=== PATIENT | female | born 1955 | race Caucasian/White ===

== ENCOUNTER 2022-04-13 04:00 | Inpatient (IN) | payer BC, MEDICARE, SELFPAY ==
[2022-04-13] VITALS (7 sets, daily range): BP systolic 112–160; BP diastolic 57–79; PULSE 67–89; RESP 16; TEMP 36.1–37.3; O2SAT 94–97
[2022-04-13] MEDS: OXYCODONE 5 MG TABLET PO ×6 (03:53→23:55)
--- NOTE | 2022-04-13 05:49 | PC.NURSE ---
Pt arrived from ED approx 2029, frequent small watery stools which have decreased in frequency as night progressed, Pt C-Diff Positive. c/o occasional low abd pain/cramps, prn oxy administered with relief. ambulating ind in room, tolerating clears, advance diet as tolerated. denies N/V during night.
--- NOTE | 2022-04-13 06:33 | PM.IMPN1 ---
Progress Note: A&P Assessment and plan (1) Colitis due to Clostridioides difficile: Status: Acute Assessment and Plan: on oral vancomycin, 125 mg p.o. q.i.d. LR at 100 mL an hour, will continue until oral intake is appropriate. Oxy p.r.n. CT at admission: circumferential wall thickening around the sigmoid colon. Appearance is most consistent with colitis, favor infectious. No free air. No abscess. Nonobstructive left nephrolithiasis. (2) CKD (chronic kidney disease) stage 3, GFR 30-59 ml/min: Problem details: GFR has been 43-51 in recent years. Baseline creatinine is 1.1 as of 2021. Likely related to longstanding hypertension. Status: Acute Assessment and Plan: Creatinine earlier this week on April 09 was 5.5 and then 4.3 after hydration. She was not admitted at this ER visit. admission creat was 1.0 , this morning it is 0.9 (3) Hypertension: Problem details: losartan 100 mg daily, potassium supplementation Status: Acute Assessment and Plan: Holding her losartan. Time Spent With Patient Total time spent: 35 minutes Subjective Interval history: Daily Progress Note - Hospital Medicine Day #: 2 CC: Crampy diarrhea , positive C diff OVERNIGHT UPDATES FROM STAFF & MED, LAB, IMAGING UPDATES Patient feels fairly punky this morning. While the diarrhea has slowed down she still has abdominal bloating and cramping. No significant fevers or chills. No vomiting. No appetite. Nurse notes: Pt arrived from ED approx 2029, frequent small watery stools which have decreased in frequency as night progressed, Pt C-Diff Positive. c/o occasional low abd pain/cramps, prn oxy administered with relief. ambulating ind in room, tolerating clears, advance diet as tolerated. denies N/V during night. Admission data: hemoglobin 10.4 Mild leukocytosis at 12.2 CRP at admission was 16.2 Iron deficient Creatinine 1.3 Electrolytes normal Today's white blood cell count 9.92, yesterday 12.44 Hemoglobin has drifted to 9.3, 10.4 on admission . CRP is to up to 18.7 Creatinine looks great at 0.9, normal electrolytes Last dose of Oxy was at 4:00 a.m. Home meds reviewed Review of Systems: See subjective Cardiac: No new chest pain/pressure/palpitations. Respiratory: no new dyspnea. GI: Objective: Vitals: see above Lungs: Clear. Cardiac: S1S2. Disposition/Potential discharge - Likely to return to previous living situation. Total time is 35 minutes with greater than 50% spent in counseling and coordination of care. Exam Const: Vital Signs, click to edit/add: Vital Signs - 24 hr 04/13/22 03:30 04/13/22 05:46 Temperature 97.0 F L Pulse Rate [Right Pulse Oximeter] 67 Respiratory Rate 16 Blood Pressure [Ri ght Arm] 112/64 Pulse Oximetry 95 95
[2022-04-13 06:48] LABS: Slide Review Reflex No
[2022-04-13 06:55] LABS: Basophils Absolute Auto 0.02 K/uL (0.00-0.30); Basophils Percent Auto 0.2 % (0.0-3.0); Eosinophils Absolute Auto 0.13 K/uL (0.00-0.50); Eosinophils Percent Auto 1.3 % (0.0-7.0); Hematocrit 28.8 % (33.0-51.0); Hemoglobin* 9.3 gm/dL (12.0-16.0); Immature Granulocytes Abs Auto 0.44 K/uL (0.00-0.30); Lymphocytes Percent Auto 10.4 % (20-44); Mean Corpuscular HGB Conc 32 gm/dL (32-36); Mean Corpuscular Hemoglobin 30 pg (26-34); Mean Corpuscular Volume 93 fL (80-100); Monocytes Percent Auto 11.3 % (0.0-11.0); Neutrophils Percent Auto 72.4 % (42.0-72.0); Platelet Count* 303 K/uL (140-440); RDW Coefficient of Variation % 16.7 % (11.5-15.5); Red Blood Count 3.11 m/uL (4.00-5.20); White Blood Count* 9.92 K/uL (4.50-11.00)
[2022-04-13 07:08] LABS: Chloride* 111 mmol/L (96-114); Potassium* 4.2 mmol/L (3.6-5.1); Sodium* 138 mmol/L (135-149)
[2022-04-13 07:10] LABS: Creatinine* 0.9 mg/dL (0.5-1.5); Est. Creatinine Clearance* 44.36; Estimated Glomerular Filt Rate 70.95
[2022-04-13 07:11] LABS: Blood Urea Nitrogen* 25 mg/dL (7-30); Carbon Dioxide* 25 mmol/L (20-32); Glucose* 132 mg/dL (60-115)
[2022-04-13 07:31] LABS: C Reactive Protein* 18.7 mg/dL (0.5-1.0)
[2022-04-13] MEDS: 5 % DEXTROSE IN LAC RINGER'S 1,000 ML 100 ML IV ×2 (07:45→17:29)
[2022-04-13] MEDS: VANCOMYCIN 125 MG CAPSULE PO ×4 (09:19→22:02)
--- NOTE | 2022-04-13 13:51 | PC.NURSE ---
PATIENT'S VSS AND AFEBRILE. LS CLEAR. BS ACTIVE AND PATIENT PASSING GAS. PATIENT CONTINUES TO HAVE MULTIPLE LOOSE STOOLS BUT DENIES N/V. TOLERATING SMALL AMOUNTS OF CLEAR LIQUIDS. PATIENT REPORTS INCREASED CRAMPING ABDOMINAL PAIN WHICH IS IMPROVED WITH OXYCODONE AND REST.
[2022-04-13 17:20] LABS: Magnesium* 2.1 mg/dL (1.5-2.6)
--- NOTE | 2022-04-13 23:05 | PC.NURSE ---
Patient is up to the bathroom frequently to have small, loose stools. Pt describes them as bloody mucous. Receiving oxycodone every 4 hours PRN for abdominal cramping that worsens with bowel movements. Pt denies dizziness or lightheadedness. Continues with a clear liquid diet as tolerated.
[2022-04-14] VITALS (7 sets, daily range): BP systolic 113–159; BP diastolic 56–81; PULSE 78–97; RESP 16–20; TEMP 35.9–37.1; O2SAT 92–96
[2022-04-14] MEDS: 5 % DEXTROSE IN LAC RINGER'S 1,000 ML 100 ML IV ×3 (02:41→22:39)
[2022-04-14] MEDS: OXYCODONE 5 MG TABLET PO (04:02)
--- NOTE | 2022-04-14 05:24 | PC.NURSE ---
Addendum entered by Tyrone Sanchez RN 04/14/22 06:43: Advanced to Full Liquid diet Original Note: VSS RA. Crampy abd pain 02/23 gave Oxycodone 5mg q4h. Tolerated a piece of toast. Up ad mikhail in room ind w/cares.
[2022-04-14 07:33] LABS: Slide Review Reflex No
[2022-04-14 07:35] LABS: HCO3 VBG 26 mmol/L (21-28); PCO2 VBG 43 mmHG (40-50); PO2 VBG 59.4 mmHG (25-47); pH VBG 7.401 (7.32-7.43)
[2022-04-14 07:43] LABS: Basophils Absolute Auto 0.02 K/uL (0.00-0.30); Basophils Percent Auto 0.2 % (0.0-3.0); Eosinophils Absolute Auto 0.13 K/uL (0.00-0.50); Eosinophils Percent Auto 1.4 % (0.0-7.0); Hematocrit 26.5 % (33.0-51.0); Hemoglobin* 8.3 gm/dL (12.0-16.0); Immature Granulocytes Abs Auto 0.24 K/uL (0.00-0.30); Lymphocytes Percent Auto 13.7 % (20-44); Mean Corpuscular HGB Conc 31 gm/dL (32-36); Mean Corpuscular Hemoglobin 29 pg (26-34); Mean Corpuscular Volume 93 fL (80-100); Monocytes Percent Auto 11.3 % (0.0-11.0); Neutrophils Absolute Auto 6.38 K/uL (1.7-7.0); Neutrophils Percent Auto 70.7 % (42.0-72.0); Platelet Count* 302 K/uL (140-440); RDW Coefficient of Variation % 16.7 % (11.5-15.5); Red Blood Count 2.85 m/uL (4.00-5.20); White Blood Count* 9.03 K/uL (4.50-11.00)
[2022-04-14 07:53] LABS: Chloride* 110 mmol/L (96-114)
[2022-04-14 07:54] LABS: Albumin* 2.4 g/dL (3.3-5.0); Sodium* 138 mmol/L (135-149)
[2022-04-14 07:55] LABS: Potassium* 3.5 mmol/L (3.6-5.1)
[2022-04-14 07:57] LABS: Alanine Aminotransferase* 18 U/L (4-35); Alkaline Phosphatase* 51 U/L (40-150); Aspartate Amino Transferase* 16 U/L (12-35); Bilirubin Total* 0.3 mg/dL (0.1-1.5); Blood Urea Nitrogen* 14 mg/dL (7-30); Carbon Dioxide* 26 mmol/L (20-32); Creatinine* 0.7 mg/dL (0.5-1.5); Est. Creatinine Clearance* 44.36; Estimated Glomerular Filt Rate 95.92; Total Protein* 4.7 g/dL (6.0-8.3)
[2022-04-14 07:58] LABS: Calcium* 7.7 mg/dL (8.4-10.6); Glucose* 122 mg/dL (60-115); Magnesium* 1.8 mg/dL (1.5-2.6)
[2022-04-14 08:14] LABS: C Reactive Protein* 15.6 mg/dL (0.5-1.0)
[2022-04-14] MEDS: VANCOMYCIN 125 MG CAPSULE PO ×4 (09:19→20:55)
--- NOTE | 2022-04-14 15:11 | PM.IMPN1 ---
Progress Note: A&P Assessment and plan (1) Colitis due to Clostridioides difficile: Status: Acute Assessment and Plan: Continue oral vancomycin, IV fluids. Tracking her hemoglobin. Likely needs to be admitted for another 24 hours. (2) Hypertension: Problem details: losartan 100 mg daily, potassium supplementation Status: Acute Assessment and Plan: Holding her losartan currently. Will add back some potassium as it is dropping. (3) CKD (chronic kidney disease) stage 3, GFR 30-59 ml/min: Problem details: GFR has been 43-51 in recent years. Baseline creatinine is 1.1 as of 2021. Likely related to longstanding hypertension. Status: Acute Assessment and Plan: Creatinine is the best it has been in recent measurements. (4) ABLA (acute blood loss anemia): Status: Acute Plan Combination of delusional effect and GI blood loss Subjective Interval history: Daily Progress Note - Hospital Medicine Day #: 3 CC: Crampy diarrhea , positive C diff OVERNIGHT UPDATES FROM STAFF & MED, LAB, IMAGING UPDATES Patient feels a little better this morning. She tolerated some toast yesterday afternoon. She has been up ambulating in her room and back and forth to the bathroom independently. No vomiting or extreme nausea overnight. Afebrile Blood pressure 150/78, 148/79 Pulse rate 90s Respiratory rate 20 Pulse ox 95% on room air Weight 71 kilos, up from 68 kg Hemoglobin has dropped another point to 8.3 from 9.3 yesterday. White count is normal and stable at 9000 Venous blood gas this morning is normal Potassium has dropped a little to 3.5 from 4.2 otherwise normal electrolytes and renal function. CRP is down to 15 Patient continues on LR with 5% dextrose, oral vanc and p.r.n. oxycodone. Review of Systems: See subjective Cardiac: No new chest pain/pressure/palpitations. Respiratory: no new dyspnea. GI: Objective: Awake. Alert. Interactive. Vitals: see above Lungs: Clear. Cardiac: S1S2. Abdomen: Distended, tender but no evidence of rigidity or surgical emergency. Good bowel sounds. Disposition/Potential discharge - Likely to return to previous living situation. Total time is 35 minutes with greater than 50% spent in counseling and coordination of care. Exam Const: Vital Signs, click to edit/add: Vital Signs - 24 hr 04/13/22 15:45 04/13/22 16:10 04/13/22 20:12 Temperature 98.7 F 98.8 F Pulse Rate [Right Pulse Oximeter] 86 86 89 Pulse Rate [Right Radial] Respiratory Rate 16 16 16 Blood Pressure [Ri ght Arm] 138/66 160/79 H Pulse Oximetry 95 95 04/14/22 00:29 04/14/22 04:06 04/14/22 08:00 Temperature 98.1 F 96.6 F L 96.8 F L Pulse Rate [Right Pulse Oximeter] 84 82 78 Pulse Rate [Right Radial] 78 Respiratory Rate 16 16 16 Blood Pressure [Ri ght Arm] 126/65 113/56 L 148/79 H Pulse Oximetry 93 95 95 04/14/22 12:00 Temperature 96.8 F L Pulse Rate [Right Pulse Oximeter] 97 Pulse Rate [Right Radial] Respiratory Rate 20 Blood Pressure [Ri ght Arm] 150/78 H Pulse Oximetry Labs Labs: Laboratory Results - last 24 hr 04/13/22 04/14/22 04/14/22 06:36 06:48 06:48 WBC 9.03 RBC 2.85 L Hgb 8.3 L Hct 26.5 L MCV 93 MCH 29 MCHC 31 L RDW Coeff of Ruma 16.7 H Plt Count 302 Neut % (Auto) 70.7 Lymph % (Auto) 13.7 L [place] % (Auto) 11.3 H Eos % (Auto) 1.4 Baso % (Auto) 0.2 Neut # (Auto) 6.38 Lymph # (Auto) 1.20 [place] # (Auto) 1.00 H Eos # (Auto) 0.13 Baso # (Auto) 0.02 Abs Immat Gran (auto) 0.24 VBG pH VBG pCO2 VBG pO2 VBG HCO3 Sodium 138 Potassium 3.5 L Chloride 110 Carbon Dioxide 26 BUN 14 Creatinine 0.7 Estimated Creat Clear 44.36 Glucose 122 H Calcium 7.7 L Magnesium 2.1 1.8 Total Bilirubin 0.3 AST 16 ALT 18 Alkaline Phosphatase 51 C-Reactive Protein 15.6 H Total Protein 4.7 L Albumin 2.4 L 04/14/22 06:48 WBC RBC Hgb Hct MCV MCH MCHC RDW Coeff of Ruma Plt Count Neut % (Auto) Lymph % (Auto) [place] % (Auto) Eos % (Auto) Baso % (Auto) Neut # (Auto) Lymph # (Auto) [place] # (Auto) Eos # (Auto) Baso # (Auto) Abs Immat Gran (auto) VBG pH 7.401 VBG pCO2 43 VBG pO2 59.4 H VBG HCO3 26 Sodium Potassium Chloride Carbon Dioxide BUN Creatinine Estimated Creat Clear Glucose Calcium Magnesium Total Bilirubin AST ALT Alkaline Phosphatase C-Reactive Protein Total Protein Albumin
--- NOTE | 2022-04-14 15:28 | PC.NURSE ---
shift note: pt up indept in room. pt tolerating full liquid diet. Pt having increased abd distention with cramping when introducing a few bites of toast. IV dc'd intact Lt wrist and restarted in Lt FA
--- NOTE | 2022-04-14 18:50 | PC.NURSE ---
Shift Note 15-19: Pt friendly and cooperative. Denies any BM, states she did have some flatus. Oral Vanco given. Pt also verbalizes increased discomfort with regular diet, opted to stick with full liquid diet at this time and declined ordering dinner tray. Denies pain and abdomen is soft on palpation. BS hypoactive. Slightly hypertensive, VS otherwise WNL. LS COA. Afebrile.
[2022-04-14] MEDS: POTASSIUM PHOS/SODIUM PHOS 250 MG TABLET PO (20:55)
[2022-04-15 04:24] VITALS: BP 138/70; RESP 18; TEMP 36.8; O2SAT 96
--- NOTE | 2022-04-15 05:46 | PC.NURSE ---
Shift note: The pt has been pleasant and cooperative. She has been having several small loose BM mixed with small blood per Pt. She has been reporting very minimal pain. She stated that when she eats any kinds of food and drink water her abdominal pain seems to increase- So she is reducing oral intake ( bowel rest ). No fever noted. She denied chest pain and other distress throughout the night.
[2022-04-15 07:38] LABS: Basophils Absolute Auto 0.01 K/uL (0.00-0.30); Basophils Percent Auto 0.1 % (0.0-3.0); Eosinophils Absolute Auto 0.08 K/uL (0.00-0.50); Hematocrit 29.3 % (33.0-51.0); Hemoglobin* 9.5 gm/dL (12.0-16.0); Immature Granulocytes Abs Auto 0.16 K/uL (0.00-0.30); Lymphocytes Percent Auto 14.3 % (20-44); Mean Corpuscular HGB Conc 32 gm/dL (32-36); Mean Corpuscular Hemoglobin 30 pg (26-34); Mean Corpuscular Volume 92 fL (80-100); Monocytes Percent Auto 8.6 % (0.0-11.0); Platelet Count* 368 K/uL (140-440); RDW Coefficient of Variation % 16.5 % (11.5-15.5); Red Blood Count 3.18 m/uL (4.00-5.20); White Blood Count* 8.17 K/uL (4.50-11.00)
[2022-04-15 07:39] LABS: Slide Review Reflex No
[2022-04-15 07:49] LABS: Chloride* 107 mmol/L (96-114); Potassium* 3.8 mmol/L (3.6-5.1); Sodium* 140 mmol/L (135-149)
[2022-04-15 07:52] LABS: Creatinine* 0.7 mg/dL (0.5-1.5); Est. Creatinine Clearance* 44.36; Estimated Glomerular Filt Rate 95.92
[2022-04-15 07:53] LABS: Blood Urea Nitrogen* 9 mg/dL (7-30); Calcium* 8.1 mg/dL (8.4-10.6); Carbon Dioxide* 29 mmol/L (20-32); Glucose* 119 mg/dL (60-115); Magnesium* 1.8 mg/dL (1.5-2.6)
[2022-04-15 08:00] VITALS: BP 160/83; PULSE 84; RESP 18; TEMP 37; O2SAT 97
[2022-04-15 08:20] LABS: C Reactive Protein* 13.6 mg/dL (0.5-1.0)
[2022-04-15] MEDS: POTASSIUM PHOS/SODIUM PHOS 250 MG TABLET PO ×2 (08:46→22:02)
[2022-04-15] MEDS: VANCOMYCIN 125 MG CAPSULE PO ×4 (08:46→22:02)
[2022-04-15 12:00] VITALS: BP 122/70; PULSE 91; RESP 18; TEMP 36.8; O2SAT 96
--- NOTE | 2022-04-15 16:04 | PC.NURSE ---
shift note: vss stable. pt up in horner x2. pt states bloating to abd is less today. Pt has hypoactive BS in upper quads. Pt states she had 3 small loose stools with moderate amounts of flatus. Pt tolerating small amounts of liquids throughout the day
[2022-04-15 16:05] VITALS: BP 161/83; PULSE 84; PULSE 86; RESP 18; TEMP 36.6; O2SAT 97
[2022-04-15 21:00] VITALS: BP 148/61; PULSE 101; RESP 18; TEMP 36.2; O2SAT 96
--- NOTE | 2022-04-15 23:31 | PC.NURSE ---
Shift Note [id number]: Pt moving independently. One small loose bloody stool. Slightly hypertensive, VS otherwise WNL. Tolerating full liquids well.
[2022-04-16 01:41] VITALS: BP 141/61; PULSE 86; RESP 18; TEMP 36.4; O2SAT 95
[2022-04-16 01:45] VITALS: PULSE 86; RESP 18
[2022-04-16 05:50] VITALS: BP 145/74; PULSE 79; RESP 18; TEMP 36.3; O2SAT 95
--- NOTE | 2022-04-16 07:23 | PC.NURSE ---
Shift note: The pt has been denying abdominal pain throughout the night. She stated that she had tomato soup for dinner and tolerated it well. She said she had x2 small loose stool mixed with some blood. The pt had been resting comfortale throughout the night.
[2022-04-16 07:24] LABS: HCO3 VBG 28 mmol/L (21-28); Lactate* 0.4 mmol/L (0.5-1.9); PCO2 VBG 41 mmHG (40-50); PO2 VBG 51.9 mmHG (25-47); pH VBG 7.432 (7.32-7.43)
[2022-04-16 07:27] LABS: Hematocrit 27.2 % (33.0-51.0); Hemoglobin* 8.7 gm/dL (12.0-16.0); Mean Corpuscular HGB Conc 32 gm/dL (32-36); Mean Corpuscular Hemoglobin 29 pg (26-34); Mean Corpuscular Volume 91 fL (80-100); Platelet Count* 357 K/uL (140-440); White Blood Count* 6.35 K/uL (4.50-11.00)
[2022-04-16 07:44] LABS: Slide Review Reflex No
[2022-04-16 08:16] LABS: Magnesium* 1.9 mg/dL (1.5-2.6)
[2022-04-16 09:00] VITALS: BP 145/69; PULSE 85; RESP 18; TEMP 36.7; O2SAT 96
[2022-04-16 09:00] LABS: Procalcitonin* 1.07 ng/mL (<0.50)
[2022-04-16] MEDS: VANCOMYCIN 125 MG CAPSULE PO ×2 (09:14→13:11)
[2022-04-16] MEDS: POTASSIUM PHOS/SODIUM PHOS 250 MG TABLET PO (09:15)
[2022-04-16 09:17] LABS: C Reactive Protein* 6.9 mg/dL (0.5-1.0); NT Pro B Type NatriureticPept* 435 PG/mL (0-125)
--- NOTE | 2022-04-16 15:00 | NUTR.NU ---
RDN with MD consult related to colitis. Patient and agreed to receive diet education related to colitis. Patient reports having a 'sluggish' bowel pattern, describing having bowel movements every 3-4 days without consistency. She also reports she typically strains when she is having a bowel movement. Patient was provided diet education on a low fiber diet with a transition to high-fiber diet. Discussed foods to include and foods to avoid until MD recommends advancing to high fiber diet. Education also provided on gradually increasing fiber and following a high fiber diet (25-35 grams/day) long-term.? Verbal and written information as well as sample menus provided on both diets from AND [facility].? Patient verbalized understanding.? RDN's contact information was provided and patient was encouraged to contact RDN with questions.
--- NOTE | 2022-04-16 16:21 | PM.IMPN1 ---
Progress Note: A&P Assessment and plan (1) Colitis due to Clostridioides difficile: Status: Acute Assessment and Plan: Suspect she needs another 24 hours to measure fluid intake and pain management. I suspect she will be able to discharge tomorrow. (2) Hypertension: Problem details: losartan 100 mg daily, potassium supplementation Status: Acute Assessment and Plan: Stable. (3) CKD (chronic kidney disease) stage 3, GFR 30-59 ml/min: Problem details: GFR has been 43-51 in recent years. Baseline creatinine is 1.1 as of 2021. Likely related to longstanding hypertension. Status: Acute Assessment and Plan: Stable. (4) ABLA (acute blood loss anemia): Status: Acute Assessment and Plan: There continues to be a small amount of GI blood loss from her inflammation secondary to the colitis. This can be monitored at this point. Subjective Interval history: Daily Progress Note - Hospital Medicine Day #: 4 CC: Crampy diarrhea , positive C diff OVERNIGHT UPDATES FROM STAFF & MED, LAB, IMAGING UPDATES Patient feels a little better this morning. She tolerated some toast yesterday afternoon. She has been up ambulating in her room and back and forth to the bathroom independently. No vomiting or extreme nausea overnight. Reviewed vitals and labs. I have stopped fluids this morning Patient continues on oral vanc Review of Systems: See subjective Cardiac: No new chest pain/pressure/palpitations. Respiratory: no new dyspnea. GI: Mild to moderate distension Objective: Awake. Alert. Interactive. Vitals: see above Lungs: Clear. Cardiac: S1S2. Abdomen: Distended, tender but no evidence of rigidity or surgical emergency. Good bowel sounds. Disposition/Potential discharge - Likely to return to previous living situation. Total time is 35 minutes with greater than 50% spent in counseling and coordination of care. Exam Const: Vital Signs, click to edit/add: Vital Signs - 24 hr 04/15/22 21:00 04/16/22 01:41 04/16/22 01:45 Temperature 97.1 F L 97.6 F Pulse Rate [Right Radial] 101 H 86 86 Respiratory Rate 18 18 18 Blood Pressure [Ri ght Arm] 148/61 H 141/61 H Pulse Oximetry 96 95 04/16/22 05:50 04/16/22 09:00 Temperature 97.4 F L 98.1 F Pulse Rate [Right Radial] 79 85 Respiratory Rate 18 18 Blood [facility]] 145/74 H 145/69 H Pulse Oximetry 95 96 Labs Labs: Laboratory Results - last 24 hr 04/16/22 04/16/22 04/16/22 07:05 07:05 07:05 WBC 6.35 RBC 3.00 L Hgb 8.7 L Hct 27.2 L MCV 91 MCH 29 MCHC 32 Plt Count 357 VBG pH 7.432 H VBG pCO2 41 VBG pO2 51.9 H VBG HCO3 28 Lactate 0.4 L Magnesium 1.9 C-Reactive Protein 6.9 H NT-Pro-B Natriuret Pep 435 H Procalcitonin 1.07 H
--- NOTE | 2022-04-16 16:37 | PC.NURSE ---
shift note: vss stable. pt afeb. pt instructed prior to dc by urologic nurse. Reviewed dc instructions and copies sent with pt at dc. Belongings reviewed and sent with pt at dc. IV dc'd intact Lt FA.
--- NOTE | 2022-04-16 20:43 | P.DS_ITS ---
DS: Providers Provider Date of admission: 04/15/22 14:17 Primary care physician: Licha Sol DO Admitting Clinician: Suzanne Alvarez MD Consults: 04/16/22 14:14 Consult to Nutrition [CONS] Routine Comment: Reason for consult:: Miscellaneous Comment: information on colitis diet Attending Physician on discharge: Suzanne Alvarez MD DS: Diagnosis Discharge Diagnosis (1) Colitis due to Clostridioides difficile: Status: Acute Problem details: Status post oral vancomycin, total 14 days. First occurrence. (2) ABLA (acute blood loss anemia): Status: Acute Problem details: PCP should follow-up on hemoglobin. I think this will be self-limited. She was not transfused. (3) CKD (chronic kidney disease) stage 3, GFR 30-59 ml/min: Status: Acute Problem details: GFR has been 43-51 in recent years. Baseline creatinine is 1.1 as of 2021. Likely related to longstanding hypertension. (4) Hypertension: Status: Acute Problem details: losartan 100 mg daily, potassium supplementation DS: Summary Hospital Course Hospital Course: HOSPITALIST DISCHARGE SUMMARY ATTENDING PHYSICIAN: Suzanne Alvarez MD FINAL DIAGNOSIS: C difficile colitis HOSPITAL FOLLOWUP ISSUES: 1. Primary care -continue oral vancomycin as prescribed. REFERRALS WHILE ADMITTED: None REFERRALS AFTER DISCHARGE: None BRIEF HOSPITAL COURSE: Patient had severe presentation of dehydration, JULIANNA, diarrhea. A previous ER visit earlier in the week showed a severe JULIANNA. While that was as bad as her kidneys would look throughout this entire presentation, her dehydration and weakness and diarrhea continued to get worse. She ultimately was diagnosed to C difficile colitis. She responded to p.o. vancomycin. We weaned her off her fluids. She was tolerating a regular diet, albeit soft and small, however no vomiting white increased diarrhea. She had some GI blood loss with her colitis. This was observed. She did not receive a transfusion. VITAL SIGN, MEDICATION, LAB/MICRO, IMAGING SUMMARY (full details available in account tabs or by records request) CBC reflected her anemia. On discharge it was 8.7. She was 9.3 on admission. CRP down trending Pro count was elevated, I suspect this is just related to her known bacterial infection of her: Blood gas was reassuring CT AP on admission: 1. Similar appearance of circumferential wall thickening concerning inflammatory changes around the sigmoid colon and distal portion of the left colon. Appearance is consistent with colitis, favored of infectious etiology. No free air or organized fluid collection. 2. Nonobstructive left nephrolithiasis DISCHARGE MEDICATIONS: See Reconciled list REVIEW OF SYSTEMS No new chest pain or dyspnea Pain controlled No voiding difficulties Tolerating diet challenge PHYSICAL EXAM: CONSTITUTIONAL: VITAL SIGNS: see record. HEENT: Normocephalic, atraumatic. PERRL, EOMI, conjunctivae pink, no scleral icterus. Ears and nose externally normal. Pharynx normal. NECK: No JVD. No carotid bruit, no thyromegaly, no adenopathy. CHEST: Clear to auscultation bilaterally. HEART: S1 and S2 normal. Edema ABDOMEN: Much improved, still mildly tender. Still mild distention but reji erating the exam much better MUSCULOSKELETAL: No gross joint deformity or swelling. NEURO: Cranial nerves intact. Grossly intact. No asymmetric findings. SKIN: No rashes, petechiae, concerning changes PSYCHIATRIC: Mood euthymic. DISPOSITION: Time spent on discharge 37 minutes. Status at Discharge Functional status at discharge: independent ambulation Time Spent with Patient Time attestation: Total time spent providing and/or coordinating discharge services: Time spent: Greater than 30 minutes Exam Const: Vital Signs, click to edit/add: Vital Signs - 24 hr 04/15/22 21:00 04/16/22 01:41 04/16/22 01:45 Temperature 97.1 F L 97.6 F Pulse Rate [Right Radial] 101 H 86 86 Respiratory Rate 18 18 18 Blood Pressure [Ri ght Arm] 148/61 H 141/61 H Pulse Oximetry 96 95 04/16/22 05:50 04/16/22 09:00 Temperature 97.4 F L 98.1 F Pulse Rate [Right Radial] 79 85 Respiratory Rate 18 18 Blood Pressure [Ri ght Arm] 145/74 H 145/69 H Pulse Oximetry 95 96 DS: Data Data Completed and Pending Labs on day of discharge: Labs from last 24 hours 04/16/22 04/16/22 04/16/22 07:05 07:05 07:05 WBC 6.35 RBC 3.00 L Hgb 8.7 L Hct 27.2 L MCV 91 MCH 29 MCHC 32 Plt Count 357 VBG pH 7.432 H VBG pCO2 41 VBG pO2 51.9 H VBG HCO3 28 Lactate 0.4 L Magnesium 1.9 C-Reactive Protein 6.9 H NT-Pro-B Natriuret Pep 435 H Procalcitonin 1.07 H Discharge Plan Discharge Disposition: Home, Self-Care Date of Admission: 04/15/22 14:17 Attending Provider on Discharge: Suzanne Alvarez Primary Care Provider: Licha Sol Condition: Improved Anticipated Discharge Date/Time: 04/16/22 14:48 Discharge Medications: New vancomycin 125 mg Capsule 125 mg PO QID Qty: 40 0RF Phospha 250 Neutral 250 mg Tablet 250 mg PO BID Qty: 30 0RF oxycodone 5 mg Tablet 5 mg PO Q4H PRNQty: 10 0RF Continued losartan 100 mg tablet 100 mg PO DAILY 0RF potassium citrate 10 mEq (1,080 mg) tablet extended release 2,160 mg PO DAILY 0RF cholecalciferol (vitamin D3) 25 mcg (1,000 unit) capsule 25 mcg PO DAILY 0RF cetirizine 10 mg tablet 10 mg PO DAILY 0RF Discharge Orders: Discharge Order (Routine); Ordered 04/16/22 Ordered By: Suzanne Alvarez Patient Education: Oxycodone, Rapid Release (By mouth), Vancomycin (By mouth), C. Diff (Clostridioides Difficile) Infection (DC) Activity Level: Activity as Tolerated Discharge Diet: Regular Follow Up Appointments: Licha Sol DO [Primary Care Provider] - 04/28/22 12:45 pm Forms: [facility] Info Instructions
--- NOTE | 2022-04-23 10:50 | PC.NURSE ---
Late entry note-patient inpatient order to start on 04/13/22. New electronic charting system implemented, order missed on admission to floor on 04/13/22 at approximately 0400.
== END 2022-04-16 16:00 | disposition home or self-care (01) | DRG 248 ==
PROVIDERS: Admitting Provider Family Medicine; Emergency Provider Internal Medicine; PCP Family Medicine; Visit Provider Family Medicine
DX: A04.72 Enterocolitis due to Clostridium difficile, not specified as recurrent (principal); D62 Acute posthemorrhagic anemia; N17.9 Acute kidney failure, unspecified; I12.9 Hypertensive chronic kidney disease with stage 1 through stage 4 chronic kidney disease, or unspecified chronic kidney disease; N18.30 Chronic kidney disease, stage 3 unspecified; E86.0 Dehydration; N20.0 Calculus of kidney
CPT/HCPCS: 36415; 80048; 80053; 82803; 83605; 83735; 83880; 84145; 85025; 85027; 86140; A9270; G0378

== ENCOUNTER 2024-03-03 21:15 | Emergency (ER) | payer MEDICARE, BC, SELFPAY ==
[2024-03-03 21:36] VITALS: BP 193/112; PULSE 97; RESP 18; TEMP 36.9; O2SAT 98; BMI 25.7
--- NOTE | 2024-03-03 22:05 | CT_ITS ---
Patient: RADHA SHOOK Facility:?[facility] Patient ID:?[id number] Site Patient ID:?[id number]. Site :?[id number] Study:?CT-Abdomen/Pelvis W/74CC [id number] 11:06:36 PM Ordering Physician:VEDA Final Report: INDICATION: Abdominal pain. TECHNIQUE: CT abdomen and pelvis acquired with 74 cc Isovue 370 IV contrast. COMPARISON: None. FINDINGS: Lower chest: Unremarkable. Liver: Mild hepatic steatosis. No suspicious masses. Gallbladder and bile ducts: Unremarkable. No stones or inflammation. No biliary ductal dilatation. Spleen: Unremarkable. Normal in size. No masses. Adrenal glands: Unremarkable. No nodules. Pancreas: Unremarkable. No mass or inflammation. Kidneys: Bilateral renal cysts. Subcentimeter hypodense foci are too small to accurately characterize. Small nonobstructive left renal calculi. No hydronephrosis. GI tract: Small hiatal hernia. Large colonic stool load. Mild wall thickening at the rectosigmoid junction. No evidence of obstruction. Appendix is not well visualized, however there is no evidence of right lower quadrant inflammatory stranding. Lymph nodes: No lymphadenopathy. Vasculature: Scattered atherosclerotic calcifications. Abdominal aorta is normal in caliber. Omentum/Peritoneum/Abdominal Wall: Trace free fluid in the pelvis. No focal fluid collection. No free air. 3.5 cm low-density lesion in the left rectus femoris muscle. Pelvis: Unremarkable. Bones: Unremarkable for age. IMPRESSION: 1. Mild wall thickening at the rectosigmoid junction, nonspecific may represent component of proctocolitis. 2. Large colonic stool load, likely reflecting constipation. 3. 3.5 cm low-density lesion in the left rectus femoris muscle, nonspecific. 4. Small left nonobstructive nephrolithiasis. Please note that all CT scans at this facility use dose modulation, iterative reconstruction, and/or weight-based dosing when appropriate to reduce radiation dose to as low as reasonably achievable. Dictated by Garry Buckely MD @ 03/03/2024 11:34:44 PM Signed by:?Garry Buckley MD @03/03/2024 11:34:44 PM (Electronic Signature)
--- NOTE | 2024-03-03 22:34 | ED_ITS ---
HPI - Abdominal Pain General Chief Complaint: Abdominal Pain Stated Complaint: abodminal pain Time Seen by Provider: 03/03/24 22:02 History of Present Illness HPI narrative: Patient is a 69-year-old woman who comes in tonight with 6-8 hours of abdominal pain. Abdominal pain is diffuse. He was accompanied by loose stools. She has had no fevers no chills no night sweats. She has had no nausea or vomiting. Patient has a distant history 2 years ago of C difficile colitis. She states that she has had no recent antibiotics. No recent travel no sick contacts. No other related symptoms. Related Data Home Medications Medication Instructions Recorded Confirmed cetirizine 10 mg tablet 10 mg PO DAILY 04/13/22 03/03/24 cholecalciferol (vitamin D3) 25 25 mcg PO DAILY 04/13/22 03/03/24 mcg (1,000 unit) capsule losartan 100 mg tablet 100 mg PO DAILY 04/13/22 03/03/24 potassium citrate 10 mEq (1,080 2,160 mg PO DAILY 04/13/22 03/03/24 mg) tablet,extended release levothyroxine 75 mcg tablet 75 mcg PO QAM 03/03/24 03/03/24 rosuvastatin 10 mg tablet 10 mg PO QPM 03/03/24 03/03/24 Previous Rx's Medication Instructions Recorded oxycodone 5 mg tablet 5 mg PO Q4H PRN #10 tabs 04/16/22 sodium di- and 250 mg PO BID #30 tabs 04/16/22 monophosphate-potassium phos monobasic 250 mg tablet (Phospha Neutral) Allergies Allergy/AdvReac Type Severity Reaction Status Date / Time No Known Allergies Allergy Verified 03/03/24 21:39 Review of Systems Status of ROS Reports: 10 or more systems reviewed and unremarkable except as noted in History and below [facility] Medical History CKD (chronic kidney disease) stage 3, GFR 30-59 ml/min ?N18.30 - Chronic kidney disease, stage 3 unspecified (ICD-10) Adenomatous colon polyp ?D12.6 - Benign neoplasm of colon, unspecified (ICD-10) Osteopenia ?M85.80 - Other specified disorders of bone density and structure, unspecified site (ICD-10) 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 - Malignant neoplasm of tonsil, unspecified (ICD-10) Vitamin D deficiency ?E55.9 - Vitamin D deficiency, unspecified (ICD-10) Nephrolithiasis ?N20.0 - Calculus of kidney (ICD-10) Colitis due to Clostridioides difficile ?A04.72 - Enterocolitis due to Clostridium difficile, not specified as recurrent (ICD-10) Hypertension ?I10 - Essential (primary) hypertension (ICD-10) Surgical History History of tonsillectomy ?Z90.89 - Acquired absence of other organs (ICD-10) History of lithotripsy ?Z98.890 - Other specified postprocedural states (ICD-10) Family History Father Lung cancer Diabetes Mother Dementia Brother Nephrolithiasis Brother Gout Social History (Updated 04/13/22 @ 06:27 by Suzanne Alvarez MD) Narrative: , lives with her in [place] Previous occupational history: retired from [employer] Smoking Status: Never smoker How often do you have a drink containing alcohol: 2-4 times a month AUDIT-C Alcohol total score: 2 Exam Narrative: Exam Narrative: EXAM GENERAL: Patient appears comfortable and well. EYES: No scleral icterus. LYMPH: No supraclavicular or cervical lymphadenopathy. SKIN: Visible skin seen during exam normal or with benign process only. EXT: No dependent lower extremity pedal edema. HEART: Regular rate and rhythm with no murmurs, rubs, or gallops. LUNGS: Clear to auscultation bilaterally with no crackles or wheezes. ABD: Soft, non tender, non distended. PSYCH: Good eye contact, speech is not pressured. Const: Vital Signs, click to edit/add: Vital Signs - 24 hr 03/03/24 21:36 Temperature 98.4 F Pulse Rate [Pulse Oximeter] 97 Respiratory Rate 18 Blood Pressure [Ri ght Upper Arm] 193/112 H Pulse Oximetry 98 Oxygen Delivery Me thod Room Air Course Course ED Course: Patient seen examined. CBC CMP amylase UA CT abdomen pelvis pending. Vital Signs Vital signs: Initial Vital Signs Temperature 98.4 F 03/03/24 21:36 Temperature Source Temporal Artery Scan 03/03/24 21:36 Pulse Rate 97 03/03/24 21:36 Pulse Rhythm Regular 03/03/24 21:36 Pulse Strength 3+ Normal 03/03/24 21:36 Respiratory Rate 18 03/03/24 21:36 Blood Pressure 193/112 H 03/03/24 21:36 Blood Pressure Mean 139 H 03/03/24 21:36 Blood Pressure Position Semi-Fowlers 03/03/24 21:36 Pulse Oximetry 98 03/03/24 21:36 Oxygen Delivery Method Room Air 03/03/24 21:36 Vital Signs Temperature 98.4 F 03/03/24 21:36 Pulse Rate 97 03/03/24 21:36 Respiratory Rate 18 03/03/24 21:36 Blood Pressure 193/112 H 03/03/24 21:36 Pulse Oximetry 98 03/03/24 21:36 Oxygen Delivery Method Room Air 03/03/24 21:36 Temperature 98.4 F 03/03/24 21:36 Pulse Rate 97 03/03/24 21:36 Respiratory Rate 18 03/03/24 21:36 Blood Pressure 193/112 H 03/03/24 21:36 Pulse Oximetry 98 03/03/24 21:36 Oxygen Delivery Method Room Air 03/03/24 21:36 MDM - Abdominal Pain MDM Narrative Medical decision making narrative: Labs are reassuring. CT scan shows questionable proctocolitis which likely is self-limited. Large amounts colonic stool load reflecting constipation is likely the etiology for her symptoms. This time I did recommend MiraLax stool softener plenty of rest plenty of fluids and outpatient follow-up. I think the likelihood that this is C difficile colitis is low but we did attempt to check a sample. No other significant findings. Differential diagnosis includes but not limited to gastroenteritis colitis constipation diverticulitis urinary tract infection. Lab Data Labs: Lab Results 03/03/24 03/03/24 03/03/24 Range/Units 22:11 22:16 22:20 WBC 13.58 H (4.50-11.00) K/uL RBC 4.67 (4.00-5.20) m/uL Hgb 14.7 (12.0-16.0) gm/dL Hct 43.5 (33.0-51.0) % MCV 93 (80-100) fL MCH 32 (26-34) pg MCHC 34 (32-36) gm/dL RDW Coeff of Ruma 12.8 (11.5-15.5) % Plt Count 302 (140-440) K/uL Neut % (Auto) 87.9 H (42.0-72.0) % Lymph % (Auto) 6.6 L (20-44) % [place] % (Auto) 5.2 (0.0-11.0) % Eos % (Auto) 0.1 (0.0-7.0) % Baso % (Auto) 0.1 (0.0-3.0) % Neut # (Auto) 11.90 H (1.7-7.0) K/uL Lymph # (Auto) 0.90 (0.90-2.90) K/uL [place] # (Auto) 0.70 (0.00-0.90) K/UL Eos # (Auto) 0.00 (0.00-0.50) K/uL Baso # (Auto) 0.00 (0.00-0.30) K/uL Abs Immat Gran (auto) 0.00 (0.00-0.30) K/uL Imm/Tot Granulo (auto) 0.1 % Sodium 138 (135-149) mmol/L Potassium 3.7 (3.6-5.1) mmol/L Chloride 105 (96-114) mmol/L Carbon Dioxide 25 (20-32) mmol/L Anion Gap 8 (7-15) mEq/L BUN 23 (7-30) mg/dL Creatinine 0.9 (0.5-1.5) mg/dL Estimated Creat Clear 45.16 Estimated GFR 70 ml/min Glucose 128 H (60-115) mg/dL Calcium 10.2 (8.4-10.6) mg/dL Total Bilirubin 0.7 (0.1-1.5) mg/dL AST 34 (12-35) U/L ALT 29 (4-35) U/L Alkaline Phosphatase 86 (40-150) U/L Total Protein 8.2 (6.0-8.3) g/dL Albumin 4.8 (3.3-5.0) g/dL Amylase 102 H (18-89) U/L Urine Color Yellow (Yellow) Urine Appearance Clear (Clear) Urine pH 7.0 (5.0-8.5) Ur Specific [place] 1.020 (1.000-1.030) Urine Protein Negative (Negative) Urine Glucose (UA) Negative (Negative) Urine Ketones 1+ A (Negative) Urine Blood Trace-intact A (Negative) Urine Nitrite Negative (Negative) Urine Bilirubin Negative (Negative) Urine Urobilinogen 0.2 (0.2-1.0) Ur Leukocyte Esterase Negative (Negative) Urine RBC 0-2 (0-2) Urine WBC 0-2 (0-5) Ur Squamous Epith Cells Few (None-Few) Amorphous Sediment Few A (None) Urine Bacteria None (None) POC Creatinine 1.0 (0.6-1.3) mg/dl Discharge Plan Discharge Clinical Impression: Abdominal pain Patient Disposition: Home, Self-Care Condition: Stable Instructions: Abdominal Pain (ED) Additional Instructions: MiraLax 17 g daily Plenty of rest Plenty of fluids Follow-up with your doctor as needed. Activity Level: No Restrictions Discharge Diet: Regular Prescriptions: No Action losartan 100 mg tablet 100 mg PO DAILY potassium citrate 10 mEq (1,080 mg) tablet extended release 2,160 mg PO DAILY cholecalciferol (vitamin D3) 25 mcg (1,000 unit) capsule 25 mcg PO DAILY cetirizine 10 mg tablet 10 mg PO DAILY Phospha 250 Neutral 250 mg Tablet 250 mg PO BID Qty: 30 0RF oxycodone 5 mg Tablet 5 mg PO Q4H PRNQty: 10 0RF levothyroxine 75 mcg tablet 75 mcg PO QAM rosuvastatin 10 mg tablet 10 mg PO QPM Follow Up/Referrals: Licha Sol DO [Primary Care Provider] - Stand Alone Forms: [facility] Info Instructions
[2024-03-03 22:39] LABS: Basophils Percent Auto 0.1 % (0.0-3.0); Eosinophils Percent Auto 0.1 % (0.0-7.0); Hematocrit 43.5 % (33.0-51.0); Hemoglobin* 14.7 gm/dL (12.0-16.0); Immature Granulocytes Pct Auto 0.1 %; Lymphocytes Percent Auto 6.6 % (20-44); Mean Corpuscular HGB Conc 34 gm/dL (32-36); Mean Corpuscular Hemoglobin 32 pg (26-34); Mean Corpuscular Volume 93 fL (80-100); Monocytes Percent Auto 5.2 % (0.0-11.0); Neutrophils Percent Auto 87.9 % (42.0-72.0); Platelet Count* 302 K/uL (140-440); RDW Coefficient of Variation % 12.8 % (11.5-15.5); Red Blood Count 4.67 m/uL (4.00-5.20); White Blood Count* 13.58 K/uL (4.50-11.00)
[2024-03-03 22:49] LABS: Slide Review Reflex No
[2024-03-03 22:57] LABS: Albumin* 4.8 g/dL (3.3-5.0); Chloride* 105 mmol/L (96-114); Sodium* 138 mmol/L (135-149)
[2024-03-03 22:58] LABS: Potassium* 3.7 mmol/L (3.6-5.1)
[2024-03-03 23:00] LABS: Appearance Urine Clear (Clear); Bilirubin Urine Negative (Negative); Blood Urine Trace-intact (Negative); Color Urine Yellow (Yellow); Glucose Urine Negative (Negative); Ketones Urine 1+ (Negative); Leukocyte Esterase Urine Negative (Negative); Nitrite Urine Negative (Negative); Protein Urine Negative (Negative); Urobilinogen Urine 0.2 (0.2-1.0)
[2024-03-03 23:00] LABS: Alanine Aminotransferase* 29 U/L (4-35); Alkaline Phosphatase* 86 U/L (40-150); Amylase* 102 U/L (18-89); Anion Gap 8 mEq/L (7-15); Aspartate Amino Transferase* 34 U/L (12-35); Bilirubin Total* 0.7 mg/dL (0.1-1.5); Blood Urea Nitrogen* 23 mg/dL (7-30); Calcium* 10.2 mg/dL (8.4-10.6); Carbon Dioxide* 25 mmol/L (20-32); Creatinine* 0.9 mg/dL (0.5-1.5); Est. Creatinine Clearance* 45.16; Estimated Glomerular Filt Rate 70 ml/min; Glucose* 128 mg/dL (60-115); Total Protein* 8.2 g/dL (6.0-8.3)
[2024-03-03 23:16] LABS: Amorphous Sediment Urine Few; RBC Urine 0-2 (0-2); Squamous Epithelial Cell Urine Few (None-Few); WBC Urine 0-2 (0-5)
== END 2024-03-03 23:56 | disposition home or self-care (01) ==
PROVIDERS: Emergency Provider Internal Medicine; PCP Family Medicine
DX: R10.9 Unspecified abdominal pain (principal)
CPT/HCPCS: 36415; 74177; 80053; 81001; 81003; 82150; 82565; 83036; 85018; 85025; 99283; 99284; 99285; Q9967

== ENCOUNTER 2024-12-26 07:56 | Outpatient (CLI) | payer MEDICARE, BC, SELFPAY ==
--- NOTE | 2024-12-26 08:15 | CRLHL7_ITS ---
For Patients: As a result of the Century Cures Act, medical imaging exams and procedure reports are released immediately into your electronic medical record. You may view this report before your referring provider. If you have questions, please contact your health care provider. Technique: Double-contrast esophagram performed after the uneventful administration of effervescent crystals and thick barium followed by thin barium. Fluoroscopy time 1 minute 18 seconds. Indication: Dysphagia,CHOKING EPISODES WITH DRY FOODS Comparison: None. Findings: Moderately large volume of aspiration occurred with cough reflex. The epiglottis is sluggish with minimal movement. Sliding hiatal hernia is present measuring 3.3 cm with large volume spontaneous reflux to the proximal esophagus. Decreased esophageal motility. Decreased ability to clear barium from the vallecula and piriform sinuses. Impression: Difficult clearing of contrast from the oropharynx with decreased movement of the epiglottis with resultant moderately large volume of aspiration. Speech pathology consultation recommended 3.3 cm sliding hiatal hernia with large volume spontaneous reflux to the proximal esophagus along with decreased esophageal motility. Dictated by Avtar Hedrick MD @ 12/26/2024 9:33:09 AM (Electronically Signed)
== END 2024-12-26 07:57 | disposition home or self-care (01) ==
LOC: RAD 07:58
PROVIDERS: PCP Family Medicine; Visit Provider Family Medicine
DX: R13.10 Dysphagia, unspecified (principal); K44.9 Diaphragmatic hernia without obstruction or gangrene; K21.9 Gastro-esophageal reflux disease without esophagitis
CPT/HCPCS: 74221